=== PATIENT | male | born 1990 | race Caucasian/White ===

== ENCOUNTER → 2017-07-10 | Emergency (ER) | payer OTHER ==
[~2017-07-10] VITALS: Ht 175.3 cm; Wt 113.4 kg
[~2017-07-10] MED LIST: CLONAZEPAM1 MG; DEPAKOTE ER500 MG; DILANTIN100 MG; PROLIXIN5 MG
== END | disposition home or self-care (01) ==
LOC: ER 04:16
DX: S30.0XXA Contusion of lower back and pelvis, initial encounter (principal); S50.02XA Contusion of left elbow, initial encounter; S70.02XA Contusion of left hip, initial encounter; S80.11XA Contusion of right lower leg, initial encounter; W22.8XXA Striking against or struck by other objects, initial encounter; Y93.89 Activity, other specified; Y92.89 Other specified places as the place of occurrence of the external cause; Y99.8 Other external cause status; F20.9 Schizophrenia, unspecified